=== PATIENT | female | born 1985 | race Two or more races ===

== ENCOUNTER → 2019-01-06 | Outpatient (CLI) | payer OTHER ==
[~2019-01-06] MED LIST: NKA
== END | disposition home or self-care (01) ==
LOC: MAMO-SONO 09:28
DX: N60.19 Diffuse cystic mastopathy of unspecified breast (principal)

== ENCOUNTER 2019-09-14 16:18 | Outpatient (CLI) | payer OTHER | END 2019-09-14 16:20 | disposition home or self-care (01) | LOC: RAD 16:18 | DX: M54.6 Pain in thoracic spine (principal); M54.5 Low back pain ==

== ENCOUNTER 2020-11-06 08:33 | Outpatient (CLI) | payer OTHER | END 2020-11-06 08:43 | disposition home or self-care (01) | LOC: SONOGRAMA 08:33 | PROVIDERS: ATTEND Obstetrics & Gynecology Maternal & Fetal Medicine | DX: N60.19 Diffuse cystic mastopathy of unspecified breast (principal); N63.0 Unspecified lump in unspecified breast ==

== ENCOUNTER 2020-12-05 08:21 | Emergency (ER) | payer OTHER ==
[~2020-12-05] VITALS: Ht 162.6 cm; Wt 51.7 kg
[2020-12-05] MEDS ORDERED: SKELAXIN800 MG PO (10:09)
[2020-12-05] MEDS ORDERED: ULTRAM50 MG PO (10:09)
[2020-12-05] MEDS ORDERED: KETO10TA2 PO (10:09)
== END 2020-12-05 10:11 | disposition home or self-care (01) ==
LOC: ER 08:21
DX: M62.838 Other muscle spasm (principal); M54.2 Cervicalgia

== ENCOUNTER 2021-04-16 08:15 | Outpatient (CLI) | payer OTHER ==
[~2021-04-16 08:15] MED LIST changes: +KETO10TA2 PO; +SKELAXIN800 MG PO; +ULTRAM50 MG PO
== END 2021-04-16 08:32 | disposition home or self-care (01) ==
LOC: MRI 08:15
PROVIDERS: ATTEND Physical Medicine & Rehabilitation
DX: M54.5 Low back pain (principal); M54.2 Cervicalgia; M54.6 Pain in thoracic spine; M54.16 Radiculopathy, lumbar region
CPT/HCPCS: 72148

== ENCOUNTER 2021-05-23 08:07 | Outpatient (CLI) | payer OTHER | END 2021-05-23 08:19 | disposition home or self-care (01) | LOC: MRI 08:07 | PROVIDERS: ATTEND Physical Medicine & Rehabilitation | DX: M54.2 Cervicalgia (principal); M54.12 Radiculopathy, cervical region | CPT/HCPCS: 72141 ==

== ENCOUNTER 2021-08-13 10:42 | Emergency (ER) | payer OTHER ==
[~2021-08-13] VITALS: Ht 162.6 cm; Wt 49.0 kg
[2021-08-13] MEDS ORDERED: ANTICONCEPTIVAS (10:56)
[2021-08-13] MEDS ORDERED: DICLOFENAC POTA50 MG PO (14:03)
[2021-08-13] MEDS ORDERED: ORPHENADRINE C100 MG PO (14:03)
== END 2021-08-13 14:08 ==
LOC: ER 10:42
DX: S20.212A Contusion of left front wall of thorax, initial encounter (principal); X58.XXXA Exposure to other specified factors, initial encounter; Y93.89 Activity, other specified; Y92.89 Other specified places as the place of occurrence of the external cause; Y99.8 Other external cause status; M94.0 Chondrocostal junction syndrome [Tietze]; R07.89 Other chest pain

== ENCOUNTER 2023-03-28 09:36 | Emergency (ER) | payer OTHER ==
[~2023-03-28] VITALS: Ht 165.1 cm; Wt 52.2 kg
[~2023-03-28 09:36] MED LIST changes: +ANTICONCEPTIVAS; +DICLOFENAC POTA50 MG PO; +ORPHENADRINE C100 MG PO
[2023-03-28] MEDS ORDERED: METAXALONE800 MG PO (10:17)
[2023-03-28] MEDS ORDERED: TRAM1TAB98 PO (10:19)
== END 2023-03-28 13:29 | disposition home or self-care (01) ==
LOC: ER 09:36
DX: S33.5XXA Sprain of ligaments of lumbar spine, initial encounter (principal); X58.XXXA Exposure to other specified factors, initial encounter; Y93.9 Activity, unspecified; Y92.9 Unspecified place or not applicable; Y99.9 Unspecified external cause status; M62.830 Muscle spasm of back

== ENCOUNTER 2023-04-20 08:10 | Outpatient (CLI) | payer OTHER ==
[~2023-04-20 08:10] MED LIST changes: +METAXALONE800 MG PO; +TRAM1TAB98 PO
== END 2023-04-20 08:26 | disposition home or self-care (01) ==
LOC: MRI 08:10
PROVIDERS: ATTEND Physical Medicine & Rehabilitation
DX: M54.59 Other low back pain (principal); M54.16 Radiculopathy, lumbar region
CPT/HCPCS: 72148

== ENCOUNTER 2024-09-05 08:05 | Outpatient (CLI) | payer OTHER | END 2024-09-05 08:08 | disposition home or self-care (01) | LOC: MAMO-SONO 08:05 | PROVIDERS: ATTEND Obstetrics & Gynecology Maternal & Fetal Medicine | DX: N63 Unspecified lump in breast (principal); Z12.31 Encounter for screening mammogram for malignant neoplasm of breast; N64.4 Mastodynia; N60.11 Diffuse cystic mastopathy of right breast ==